=== PATIENT | female | born 1975 ===

== ENCOUNTER → 2023-06-22 12:03 | Outpatient (REF) | payer BC, SELFPAY | LOC: WDC 12:03 | PROVIDERS: ATTENDING PHYSICIAN Obstetrics & Gynecology Gynecology; FAMILY PHYSICIAN Family Medicine | DX: Z12.31 Encounter for screening mammogram for malignant neoplasm of breast (principal) | CPT/HCPCS: 77063; 77067 ==

== ENCOUNTER → 2023-07-03 09:40 | Outpatient (REF) | payer BC, SELFPAY | LOC: WDC 09:40 | PROVIDERS: ATTENDING PHYSICIAN Obstetrics & Gynecology Gynecology; FAMILY PHYSICIAN Family Medicine | DX: R92.8 Other abnormal and inconclusive findings on diagnostic imaging of breast (principal) | CPT/HCPCS: 76642 ==

== ENCOUNTER → 2024-06-26 12:26 | Outpatient (REF) | payer BC, SELFPAY | LOC: HWRAD 12:26 | PROVIDERS: ATTENDING PHYSICIAN Family Medicine | DX: R19.00 Intra-abdominal and pelvic swelling, mass and lump, unspecified site (principal) | CPT/HCPCS: 76705 ==

== ENCOUNTER → 2024-07-09 07:39 | Outpatient (REF) | payer BC, SELFPAY | LOC: RAD 07:39 | PROVIDERS: ATTENDING PHYSICIAN Family Medicine | DX: R19.00 Intra-abdominal and pelvic swelling, mass and lump, unspecified site (principal) | CPT/HCPCS: 74178; Q9967 ==

== ENCOUNTER → 2024-07-22 12:52 | Outpatient (REF) | payer BC, SELFPAY | LOC: HWWDC 12:52 | PROVIDERS: ATTENDING PHYSICIAN Obstetrics & Gynecology Gynecology; FAMILY PHYSICIAN Family Medicine | DX: Z12.31 Encounter for screening mammogram for malignant neoplasm of breast (principal) | CPT/HCPCS: 77062; 77066 ==

== ENCOUNTER 2024-09-08 06:05 | Day surgery (SDC) | payer BC, SELFPAY ==
[2024-09-08 06:08] VITALS: BMI 27.0
[2024-09-08 06:24] VITALS: BP 133/87; BMI 27.0
[2024-09-08] MEDS: TYLENOL 1000 MG PO (06:32)
[2024-09-08] MEDS: HEPARIN 5000 UNITS SC (06:32)
[2024-09-08] MEDS: NORMOSOL-R/PLASMALYTE-A 1000 IV (06:42)
[2024-09-08 07:33] VITALS: BP 122/81
[2024-09-08 07:45] VITALS: BP 120/81
--- NOTE | 2024-09-08 07:50 | OR.RPT ---
Operative Report
Operative Report
Primary Surgeon: Gisele
Assisting: Eitan SYED
Pre-op Diagnosis: Soft tissue mass left abdominal wall
Post-op Diagnosis: Same
Procedure Performed: Excision of soft tissue mass of left abdominal wall
Anesthesia Type: MAC local
Specimen / Cultures: Abdominal wall mass
Estimated Blood Loss: 1cc
Complications: None immediate
Operative Findings: 1.5cm x 1.5cm x 1.5cm firm fatty subcutaneous mass at about 5mm depth below skin. Excised in toto.
Date of Surgery: 09/08/24
Indications: This 49F developed an abdominal wall soft tissue mass and open excision was elected.
PROCEDURE: After informed consent was obtained and patient was marked, the patient was brought to the operative suite and placed supine on the operating table. The patient was sedated, prepped and draped in the usual sterile manner and an adequate
local anesthetic was administered using lidocaine 1% with epinephrine.
An incision was made over the mass with a #15 blade and carried down to the subcutaneous layer with cautery. The mass was grasped with an allis clamp and dissected away from surrounding structures with metzenbaum susy. It was excised in toto and
passed off the table as specimen.
The wound was then irrigated with copious sterile saline, and hemostasis was obtained using Bovie electrocautery. The fatty layer was reapproximated with 3-0 vicryl suture. The skin was approximated with 3-0 Vicryl deep dermal interrupted sutures
and 4-0 monocryl suture in a subcuticular fashion. A pressure dressing was then applied. All surgical counts were reported as correct.
The patient tolerated the procedure well and was taken to the PACU in stable condition.
[2024-09-08 08:00] VITALS: BP 118/88
[2024-09-08 08:16] VITALS: BP 138/90
== END 2024-09-08 08:30 | disposition home or self-care (01) ==
LOC: SDS 06:05
PROVIDERS: ATTENDING PHYSICIAN Surgery
DX: D48.113 Desmoid tumor of abdominal wall (principal); L72.9 Follicular cyst of the skin and subcutaneous tissue, unspecified
CPT/HCPCS: 22903; 88304; 88341; 88342